=== PATIENT | male | born 1975 | race Caucasian/White ===

== ENCOUNTER → 2019-11-02 | Outpatient (CLI) | payer SELFPAY ==
--- NOTE | 2019-11-02 09:38 | RAD ---
Examination: ABDOMEN COMPLETE History: Flank pain Comparison/Correlation: None Findings: Complete abdominal ultrasound was performed. Fatty infiltration of the liver is present. Gallbladder wall thickness of 0.2 cm present. No cholelithiasis or findings of cholecystitis. Common bile duct measures 0.27 cm diameter. Portal venous flow is unremarkable. Abdominal aortic diameters are unremarkable. Inferior vena cava is unremarkable. Spleen is normal. Proximal pancreas is normal. Distal pancreas is obscured by bowel gas. Right kidney measures 12.8 cm x 4.7 cm x 5.4 cm the left kidney measures 13.2 cm x 6.7 cm x 1 cm. No hydronephrosis. Renal contours are unremarkable. Renal cortical echotexture is unremarkable. No ascites identified. Impression: No suspicious process. Unremarkable exam. Electronically signed by: Hussein Duffy MD (11/02/2019 9:35 AM) [facility]
== END | disposition home or self-care (01) ==
LOC: US 07:35
PROVIDERS: ATTEND Family Medicine
DX: K76.0 Fatty (change of) liver, not elsewhere classified (principal)
CPT/HCPCS: 76700